=== PATIENT | male | born 1965 | race Two or more races ===

== ENCOUNTER 2018-04-28 19:25 | Emergency (ER) | payer SELFPAY ==
[~2018-04-28] VITALS: Ht 172.7 cm; Wt 63.5 kg
[~2018-04-28 19:25] MED LIST: NKM
--- NOTE | 2018-04-28 19:26 | NUR ---
ED Nurse Note: Received report. Pt BIBA ambulatory, AAOx4 with thoughts of wanting to hurt himself and c/o abdominal pain 11/14. Pt states thatmental isuues are causing his abdominal pain. Pt says he does not take any mediaction. Will monitor and carry out MD's orders.
[2018-04-28 19:38] VITALS: BP 124/79
[2018-04-28] MEDS ORDERED: Haloperidol 5mg/ml Inj IM ONE (20:00)
--- NOTE | 2018-04-28 20:10 | NUR ---
ED Nurse Note: pt given sandwich and juice, verified with ermd.
--- NOTE | 2018-04-28 20:16 | Emergency Room Report ---
History of Present Illness General Chief Complaint: Behavioral Complaint Source: Patient, EMS (Allen Rodriguez) Present Illness HPI 52 yo male patient presents to the ER BIB ambulance complaining of hearing voices, thoughts of hurting himself, and abdominal pain. Patient reports symptoms have been present for a few hours. Patient reports hearing voices and thoughts of hopelessness. States the thoughts of hopelessness are causing him to be afraid and cause him to want to hurt himself and have abdominal pain. Reports abdominal pain is generalized and due to "the anxiety". Denies vomiting or diarrhea. Denies radiation of abdominal pain symptoms. Denies fever, chest pain, SOB. Denies plan for hurting himself. Denies drinking or drug use. Denies hx of suicidal attempts. Per EMS patient was in [facility] 10 days ago. (Allen Rodriguez) Allergies: Coded Allergies: No Known Allergies (Unverified , 04/28/18) Patient History Past Medical History: see triage record Reviewed Nursing Documentation: PMH: Agreed; PSxH: Agreed (Allen Rodriguez) Nursing Documentation-PMH Past Medical History: No Stated History History Of Psychiatric Problem: Yes - hallucination (Allen Rodriguez) Review of Systems All Other Systems: negative except mentioned in HPI (Allen Rodriguez) Physical Exam Vital Signs Date Time Temp Pulse Resp B/P (MAP) Pulse Ox O2 Delivery O2 Flow Rate FiO2 04/28/18 19:20 97.3 64 16 127/82 97 Room Air Sp02 EP Interpretation: reviewed, normal General Appearance: well appearing, no apparent distress, alert, GCS 15, non- toxic Head: normocephalic, atraumatic Eyes: bilateral eye normal inspection, bilateral eye PERRL ENT: hearing grossly normal, normal pharynx, no angioedema, normal voice, uvula midline, moist mucus membranes Neck: full range of motion Respiratory: lungs clear, normal breath sounds, no rhonchi, no respiratory distress, no accessory muscle use, no wheezing, speaking full sentences Cardiovascular #1: regular rate, rhythm, no edema Gastrointestinal: normal bowel sounds, non tender, soft, no mass, non-distended , no guarding, no rebound Genitourinary: no CVA tenderness Musculoskeletal: back normal, digits/nails normal, gait/station normal, normal range of motion, non-tender Neurologic: alert, oriented x3, responsive, motor strength/tone normal, sensory intact Psychiatric: mood/affect normal Skin: no rash (Allen Rodriguez) Medical Decision Making PA Attestation Dr. Hatch is my supervising Physician whom patient management has been discussed with. (Allen Rodriguez) Diagnostic Impression: Primary Impression: Behavioral disorder Additional Impression: Anxiety ER Course Pt. presents to the ED c/o thoughts of hurting himself, hearing voices, abdominal pain. Ddx considered but are not limited to anxiety, depression, drug use, alcohol use , behavioral disorder. Vital signs: are WNL, pt. is afebrile Ordered labs, urine drug screen, serum alcohol. ER COURSE: No abdominal TTP, negative Rovsing, negative obturator, does not require CT abdomen at this time. provided patient with Haldol and Benadryl. CBC and CMP unremarkable, no elevation in WBCs or LFTs. - Please note that this Emergency Department Report was dictated using [employer] teacher technology software, occasionally this can lead to erroneous entry secondary to interpretation by the dictation equipment. [employer] Labs Test 04/28/18 19:55 White Blood Count 5.0 K/UL (4.8-10.8) Red Blood Count 5.03 M/UL (4.70-6.10) Hemoglobin 15.3 G/DL (14.2-18.0) Hematocrit 45.8 % (42.0-52.0) Mean Corpuscular Volume 91 FL (80-99) Mean Corpuscular Hemoglobin 30.4 PG (27.0-31.0) Mean Corpuscular Hemoglobin Concent 33.4 G/DL (32.0-36.0) Red Cell Distribution Width 11.2 % (11.6-14.8) Platelet Count 181 K/UL (150-450) Mean Platelet Volume 8.6 FL (6.5-10.1) Neutrophils (%) (Auto) 75.7 % (45.0-75.0) Lymphocytes (%) (Auto) 13.9 % (20.0-45.0) Monocytes (%) (Auto) 7.6 % (1.0-10.0) Eosinophils (%) (Auto) 1.4 % (0.0-3.0) Basophils (%) (Auto) 1.4 % (0.0-2.0) Sodium Level 140 MMOL/L (136-145) Potassium Level 3.8 MMOL/L (3.5-5.1) Chloride Level 102 MMOL/L (98-107) Carbon Dioxide Level 29 MMOL/L (21-32) Anion Gap 9 mmol/L (5-15) Blood Urea Nitrogen 20 mg/dL (7-18) Creatinine 0.8 MG/DL (0.55-1.30) Estimat Glomerular Filtration Rate > 60 mL/min (>60) Glucose Level 121 MG/DL (74-106) Calcium Level 8.6 MG/DL (8.5-10.1) Total Bilirubin 1.1 MG/DL (0.2-1.0) Direct Bilirubin 0.2 MG/DL (0.0-0.3) Aspartate Amino Transf (AST/SGOT) 16 U/L (15-37) Alanine Aminotransferase (ALT/SGPT) 20 U/L (12-78) Alkaline Phosphatase 57 U/L (46-116) Total Protein 7.3 G/DL (6.4-8.2) Albumin 3.9 G/DL (3.4-5.0) Globulin 3.4 g/dL Albumin/Globulin Ratio 1.1 (1.0-2.7) Salicylates Level < 0.2 ug/mL (2.8-20) Acetaminophen Level < 2 MCG/ML (10-30) Serum Alcohol < 3 mg/dL (Allen Rodriguez P.A.) ER Course Patient signout to me. He was brought in by EMS for feeling anxious in the process with course was suicidal thoughts. He also has somatization with abdominal pain. Labs unremarkable. He is much calmer after dose of Ativan. Said is not suicidal or homicidal. He is not homeless. Said his tried to make his way back to [place]. Currently staying at a hotel. We'll discharge in the morning. No criteria for 5150. (Manny Jackson MD) Last Vital Signs Date Time Temp Pulse Resp B/P (MAP) Pulse Ox O2 Delivery O2 Flow Rate FiO2 04/28/18 19:20 97.3 64 16 127/82 97 Room Air (Allen Rdoriguez) Status: improved (Manny Jackson MD) Disposition: HOME, SELF-CARE Condition: Stable Scripts Clonazepam* (KLONOPIN*) 0.5 Mg Tablet 0.5 MG ORAL BID PRN for prn, #15 TAB 0 Refills Prov: Manny Jackson MD 04/29/18 Additional Instructions: Follow-up with your doctor in 7 days or mental health. Return if symptom worsen. Allen Rodriguez Apr 28, 2018 20:16 Manny Jackson MD Apr 29, 2018 04:34
[2018-04-28 20:36] LABS: BASOPHILS % (AUTO) 1.4 % (0.0-2.0); EOSINOPHILS % (AUTO) 1.4 % (0.0-3.0); HEMATOCRIT 45.8 % (42.0-52.0); HEMOGLOBIN 15.3 G/DL (14.2-18.0); LYMPHOCYTES % (AUTO) 13.9 % (20.0-45.0); MEAN CORPUSCULAR VOLUME 91 FL (80-99); MONOCYTES % (AUTO) 7.6 % (1.0-10.0); NEUTROPHILS % (AUTO) 75.7 % (45.0-75.0); PLATELET COUNT 181 K/UL (150-450); RED BLOOD COUNT 5.03 M/UL (4.70-6.10); RED CELL DISTRIBUTION WIDTH 11.2 % (11.6-14.8)
[2018-04-28 20:40] LABS: ANION GAP 9 mmol/L (5-15); BLOOD UREA NITROGEN 20 mg/dL (7-18); CALCIUM 8.6 MG/DL (8.5-10.1); CARBON DIOXIDE 29 MMOL/L (21-32); CHLORIDE 102 MMOL/L (98-107); CREATININE 0.8 MG/DL (0.55-1.30); POTASSIUM 3.8 MMOL/L (3.5-5.1); SODIUM 140 MMOL/L (136-145)
[2018-04-28 20:51] LABS: ALANINE AMINOTRANSFERASE 20 U/L (12-78); ALBUMIN 3.9 G/DL (3.4-5.0); ALBUMIN/GLOBULIN RATIO 1.1 (1.0-2.7); ALKALINE PHOSPHATASE 57 U/L (46-116); ASPARTATE AMINO TRANSFERASE 16 U/L (15-37); BILIRUBIN,TOTAL 1.1 MG/DL (0.2-1.0)
[2018-04-28 20:53] LABS: BILIRUBIN,DIRECT 0.2 MG/DL (0.0-0.3)
--- NOTE | 2018-04-28 21:30 | NUR ---
ED Nurse Note: pt reports he has abd pain, ERMD notified, no orders received at this time, pt has no -n/v/d. will cont monitor.
[2018-04-28 21:40] VITALS: BP 124/64
--- NOTE | 2018-04-28 22:00 | NUR ---
ED Nurse Note: pt cleaned and changed.
--- NOTE | 2018-04-28 22:45 | NUR ---
ED Nurse Note: ERMd at the bedside
[2018-04-28] MEDS ORDERED: LORazepam Inj 2mg/ml 1ml IV ONE (23:00)
[2018-04-28 23:40] VITALS: BP 100/60
--- NOTE | 2018-04-29 | NUR ---
ED Nurse Note: pt sleeping comfortably, vss, airway intact, resp even and unlabored, will cont monitor.
[2018-04-29 01:40] VITALS: BP 88/56
--- NOTE | 2018-04-29 01:45 | NUR ---
ED Nurse Note: pt sleeping comfortably in bed, arousable by light shake and name, vss, will cont monitor. airway intact, resp even and unlabored.
--- NOTE | 2018-04-29 03:04 | NUR ---
ED Nurse Note: report given to Emily and endorsed care. vss, airway intact, resp even and unlabored.
[2018-04-29 04:11] VITALS: BP 113/71
--- NOTE | 2018-04-29 04:17 | NUR ---
ED Nurse Note: Reassessed pt's BP while sleeping to monitor low BP, but VSS. No distress noted. Will continue to monitor.
[2018-04-29] MEDS ORDERED: KLONOPIN0.5 MG ORAL (04:34)
[2018-04-29 06:20] VITALS: BP 116/76
--- NOTE | 2018-04-29 06:20 | NUR ---
ED Nurse Note: Pt cleared for discharge. Pt AAOx4, ambulatory. NAD. Pt's IV line and ID band removed. Pt's discharge instructions signed, reviewed and pt verbalized understanding. Pt stated hefeels better and does not want to harm himself or anyone else. Pt given all personal belongings prior to leaving ER. Pt stable.
== END 2018-04-29 06:20 | disposition home or self-care (01) ==
LOC: EDBD 19:25 → EMR 19:58
DX: F91.9 Conduct disorder, unspecified (principal); F29 Unspecified psychosis not due to a substance or known physiological condition; F41.9 Anxiety disorder, unspecified; R10.9 Unspecified abdominal pain
CPT/HCPCS: 36415; 80053; 80307; 82248; 85025; 96361; 96372; 96374; 99284; G0480; J1630; 80329